=== PATIENT | male | born 1940 | race African-American/Black ===

== ENCOUNTER 2016-11-12 19:56 | Inpatient (IN) | payer OTHER, MEDICAID ==
[~2016-11-12] VITALS: Ht 193 cm; Wt 113.4 kg
[2016-11-12 23:36] LABS: BASOPHILS % 0.6 % (0.0-2.0); EOSINOPHILS % 1.3 % (0.0-5.0); HEMATOCRIT. 32.4 % (42.0-52.0); HEMOGLOBIN. 10.9 g/dL (14.0-18.0); LYMPHOCYTES % 17.9 % (20.0-50.0); MEAN CORPUSCULAR HEMOGLOBIN 29.2 pg (28.0-32.0); MEAN CORPUSCULAR VOLUME 87.2 fL (80.0-94.0); MEAN PLATELET VOLUME 9.7 fl (7.4-10.4); MONOCYTES % 12.9 % (2.0-8.0); NEUTROPHILS % 67.3 % (40.0-76.0); PLATELET 109 x1000/uL (130-400); RED BLOOD CELL COUNT 3.72 mill/uL (4.7-6.1); RED CELL DISTRIBUTION WIDTH 13.1 % (11.6-14.6)
[2016-11-13] VITALS (7 sets, daily range): BP systolic 137–196; BP diastolic 69–94
[2016-11-13 01:10] LABS: CLARITY URINE CLEAR (CLEAR); COLOR URINE YELLOW (YELLOW); GLUCOSE URINE NEGATIVE (NEGATIVE); KETONES URINE NEGATIVE (NEGATIVE); LEUKOCYTE ESTERASE URINE NEGATIVE (NEGATIVE); NITRITE URINE NEGATIVE (NEGATIVE); OCCULT BLOOD URINE 1+ (NEGATIVE); PH URINE 6.5 (4.5-8.0); PROTEIN URINE 2+ (NEGATIVE); SPECIFIC GRAVITY URINE 1.007 (1.005-1.030)
[2016-11-13] MEDS ORDERED: BENAZEPRIL 20MG TABLET PO ONE (03:45)
[2016-11-13] MEDS ORDERED: ONDANSETRON HCL 4MG/2ML VIAL IV PRN (09:00)
[2016-11-13] MEDS ORDERED: IPRATROPIUM/ALBUTEROL 0.5-3(2.5)MG/3ML NEB INH PRN (09:00)
[2016-11-13] MEDS ORDERED: ACETAMINOPHEN 650MG/20.3ML UDC GT PRN (09:00)
[2016-11-13] MEDS ORDERED: HYDROCODONE/ACETAMINOPHEN 5/325MG TABLET PO PRN (09:00)
[2016-11-13] MEDS ORDERED: ACETAMINOPHEN 325MG TABLET PO PRN (09:00)
[2016-11-13 09:18] LABS: *AMPHETAMINES SCREEN URINE NEGATIVE (NEGATIVE); *BARBITURATES SCREEN URINE NEGATIVE (NEGATIVE); *BENZODIAZEPINES SCREEN URINE NEGATIVE (NEGATIVE); *COCAINE SCREEN URINE NEGATIVE (NEGATIVE); CANNABINOID URINE SCREEN NEGATIVE (NEGATIVE); METHADONE URINE SCREEN NEGATIVE (NEGATIVE); OPIATES URINE SCREEN NEGATIVE (NEGATIVE); PHENCYCLIDINE URINE SCREEN NEGATIVE (NEGATIVE)
[2016-11-13] MEDS ORDERED: AMLODIPINE 10MG TABLET PO ONE (09:45)
[2016-11-13] MEDS ORDERED: ENOXAPARIN 30MG/0.3ML SYR SUBCUT SCH (12:00)
[2016-11-13] MEDS: SODIUM CHLORIDE 0.45% 1,000 ML IV SCH ×2 (12:53→22:05)
[2016-11-13] MEDS: SODIUM CHLORIDE 0.9% INJ 3ML FLUSH IVF SCH ×2 (16:40→22:04)
[2016-11-13] MEDS: FINASTERIDE 5MG TABLET PO SCH (16:41)
[2016-11-13] MEDS: TAMSULOSIN HCL 0.4MG SR CAPSULE PO SCH (16:41)
[2016-11-13] MEDS ORDERED: ENOXAPARIN 80MG/0.8ML SYR SUBCUT NR (17:00)
[2016-11-13 17:30] LABS: BASOPHILS % 0.5 % (0.0-2.0); EOSINOPHILS % 1.6 % (0.0-5.0); HEMATOCRIT. 29.6 % (42.0-52.0); HEMOGLOBIN. 9.9 g/dL (14.0-18.0); LYMPHOCYTES % 16.3 % (20.0-50.0); MEAN CORPUSCULAR HEMOGLOBIN 29.3 pg (28.0-32.0); MEAN CORPUSCULAR VOLUME 87.4 fL (80.0-94.0); MEAN PLATELET VOLUME 10.3 fl (7.4-10.4); MONOCYTES % 13.6 % (2.0-8.0); PLATELET 94 x1000/uL (130-400); RED BLOOD CELL COUNT 3.38 mill/uL (4.7-6.1)
[2016-11-13 17:46] LABS: CARBON DIOXIDE 28 mEq/L (21-32); CHLORIDE 115 mEq/L (98-107)
[2016-11-13 17:54] LABS: CREATINE KINASE MB FRACTION 1.7 ng/mL (0.5-3.6); T4 FREE 1.03 ng/dL (0.76-1.46)
[2016-11-13 18:12] LABS: TROPONIN I 0.65 ng/mL (0.00-0.04)
[2016-11-13 21:53] LABS: CREATININE URINE RANDOM 77.7 mg/dL
[2016-11-14 01:38] LABS: CREATINE KINASE MB FRACTION 1.2 ng/mL (0.5-3.6)
[2016-11-14 01:59] LABS: TROPONIN I 0.51 ng/mL (0.00-0.04)
[2016-11-14 04:00] VITALS: BP 125/63
[2016-11-14] MEDS: SODIUM CHLORIDE 0.9% INJ 3ML FLUSH IVF SCH ×3 (05:46→22:25)
[2016-11-14 05:53] LABS: BASOPHILS % 0.3 % (0.0-2.0); EOSINOPHILS % 1.6 % (0.0-5.0); HEMATOCRIT. 28.1 % (42.0-52.0); HEMOGLOBIN. 9.4 g/dL (14.0-18.0); LYMPHOCYTES % 23.6 % (20.0-50.0); MEAN CORPUSCULAR HEMOGLOBIN 29.2 pg (28.0-32.0); MEAN CORPUSCULAR VOLUME 87.1 fL (80.0-94.0); MEAN PLATELET VOLUME 10.8 fl (7.4-10.4); NEUTROPHILS % 61.5 % (40.0-76.0); PLATELET 106 x1000/uL (130-400); RED BLOOD CELL COUNT 3.23 mill/uL (4.7-6.1); RED CELL DISTRIBUTION WIDTH 13.2 % (11.6-14.6)
[2016-11-14 06:48] LABS: CARBON DIOXIDE 26 mEq/L (21-32); CHLORIDE 116 mEq/L (98-107); CREATINE KINASE 146 IU/L (39-308); CREATINE KINASE MB FRACTION 1.3 ng/mL (0.5-3.6); HDL CHOLESTEROL 57 mg/dL (40-59); LDL CHOLESTEROL 130 mg/dL (5-100); PREALBUMIN 8.3 mg/dL (20.0-40.0)
[2016-11-14 06:57] LABS: HEPATITIS B SURFACE ANTIGEN NEGATIVE
[2016-11-14 07:15] LABS: TROPONIN I 0.45 ng/mL (0.00-0.04)
[2016-11-14 08:00] VITALS: BP 136/78
[2016-11-14 08:03] LABS: FOLIC ACID (FOLATE) SERUM 6.9 ng/mL (>5.38)
[2016-11-14] MEDS: AMLODIPINE 10MG TABLET PO SCH (08:36)
[2016-11-14] MEDS: FINASTERIDE 5MG TABLET PO SCH (08:36)
[2016-11-14] MEDS: TAMSULOSIN HCL 0.4MG SR CAPSULE PO SCH (08:36)
[2016-11-14 16:00] VITALS: BP 144/87
[2016-11-14] MEDS: ENOXAPARIN 120MG/0.8ML SYR SUBCUT SCH (17:48)
[2016-11-14 20:02] VITALS: BP 122/59
[2016-11-15] VITALS (8 sets, daily range): BP systolic 134–153; BP diastolic 69–95
[2016-11-15] MEDS: SODIUM CHLORIDE 0.9% INJ 3ML FLUSH IVF SCH ×3 (05:47→20:54)
[2016-11-15 07:36] LABS: BASOPHILS % 0.6 % (0.0-2.0); EOSINOPHILS % 2.2 % (0.0-5.0); HEMATOCRIT. 28.8 % (42.0-52.0); HEMOGLOBIN. 9.5 g/dL (14.0-18.0); LYMPHOCYTES % 26.8 % (20.0-50.0); MEAN CORPUSCULAR HEMOGLOBIN 28.7 pg (28.0-32.0); MEAN CORPUSCULAR VOLUME 86.7 fL (80.0-94.0); MEAN PLATELET VOLUME 10.7 fl (7.4-10.4); MONOCYTES % 11.9 % (2.0-8.0); NEUTROPHILS % 58.5 % (40.0-76.0); PLATELET 115 x1000/uL (130-400); RED BLOOD CELL COUNT 3.32 mill/uL (4.7-6.1); RED CELL DISTRIBUTION WIDTH 12.7 % (11.6-14.6)
[2016-11-15] MEDS: FINASTERIDE 5MG TABLET PO SCH (10:22)
[2016-11-15] MEDS: AMLODIPINE 10MG TABLET PO SCH (10:22)
[2016-11-15] MEDS: TAMSULOSIN HCL 0.4MG SR CAPSULE PO SCH (10:22)
[2016-11-15] MEDS ORDERED: DIGOXIN 500MCG/2ML AMP IV NR (10:43)
[2016-11-15] MEDS: SODIUM CHLORIDE 0.45% 1,000 ML IV SCH ×2 (14:58→20:55)
[2016-11-15 15:19] LABS: BASOPHILS % 0.4 % (0.0-2.0); EOSINOPHILS % 1.6 % (0.0-5.0); HEMATOCRIT. 30.5 % (42.0-52.0); LYMPHOCYTES % 21.4 % (20.0-50.0); MEAN CORPUSCULAR HEMOGLOBIN 28.7 pg (28.0-32.0); MEAN CORPUSCULAR VOLUME 87.2 fL (80.0-94.0); MEAN PLATELET VOLUME 10.6 fl (7.4-10.4); MONOCYTES % 12.6 % (2.0-8.0)
[2016-11-15 15:53] LABS: PHOSPHORUS 3.6 mg/dL (2.5-4.9)
[2016-11-15 16:11] LABS: TROPONIN I 0.62 ng/mL (0.00-0.04)
[2016-11-15 16:25] LABS: PLATELET 128 x1000/uL (130-400)
[2016-11-15] MEDS: ENOXAPARIN 120MG/0.8ML SYR SUBCUT SCH (17:59)
[2016-11-16 04:00] VITALS: BP 157/82
[2016-11-16 06:19] LABS: BASOPHILS % 0.5 % (0.0-2.0); EOSINOPHILS % 1.2 % (0.0-5.0); HEMATOCRIT. 29.9 % (42.0-52.0); LYMPHOCYTES % 20.1 % (20.0-50.0); MEAN CORPUSCULAR HEMOGLOBIN 29.2 pg (28.0-32.0); MEAN CORPUSCULAR VOLUME 87.1 fL (80.0-94.0); MEAN PLATELET VOLUME 10.7 fl (7.4-10.4); MONOCYTES % 12.9 % (2.0-8.0); NEUTROPHILS % 65.3 % (40.0-76.0); PLATELET 132 x1000/uL (130-400); RED BLOOD CELL COUNT 3.44 mill/uL (4.7-6.1); RED CELL DISTRIBUTION WIDTH 12.9 % (11.6-14.6)
[2016-11-16] MEDS: SODIUM CHLORIDE 0.45% 1,000 ML IV SCH (06:35)
[2016-11-16] MEDS: SODIUM CHLORIDE 0.9% INJ 3ML FLUSH IVF SCH ×3 (06:36→21:14)
[2016-11-16 07:48] LABS: PHOSPHORUS 2.7 mg/dL (2.5-4.9)
[2016-11-16 08:00] VITALS: BP 174/75
[2016-11-16] MEDS: AMLODIPINE 10MG TABLET PO SCH (08:28)
[2016-11-16] MEDS: FINASTERIDE 5MG TABLET PO SCH (08:28)
[2016-11-16] MEDS: TAMSULOSIN HCL 0.4MG SR CAPSULE PO SCH (08:28)
[2016-11-16] MEDS: ENOXAPARIN 120MG/0.8ML SYR SUBCUT SCH ×2 (09:26→21:15)
[2016-11-16] MEDS: DEXTROSE 5% WATER 1,000 ML IV SCH ×2 (09:27→17:31)
[2016-11-16] MEDS: LABETALOL HCL 100MG TABLET PO SCH ×2 (09:27→21:14)
[2016-11-16 12:00] VITALS: BP 133/73
[2016-11-16 12:25] LABS: INR 1.4; PROTHROMBIN TIME 14.3 sec
[2016-11-16 15:09] LABS: ALBUMIN 2.4 g/dL (2.9-4.4); ALPHA-1-GLOBULIN 0.3 g/dL (0.0-0.4); ALPHA-2-GLOBULIN 0.7 g/dL (0.4-1.0); GAMMA GLOBULINS 0.6 g/dL (0.4-1.8); GLOBULIN TOTAL 2.5 g/dL (2.2-3.9); M-SPIKE Not Observed g/dL (Not Observed); TOTAL PROTEIN SERUM 4.9 g/dL (6.0-8.5)
[2016-11-16 16:00] VITALS: BP 159/92
[2016-11-16] MEDS ORDERED: WARFARIN SODIUM 7.5MG TABLET PO SCH (18:00)
[2016-11-16 20:00] VITALS: BP 158/90
[2016-11-17] VITALS: BP 127/72
[2016-11-17 04:00] VITALS: BP 151/74
[2016-11-17 05:16] LABS: IMMUNOGLOBULIN A 158 mg/dL (61-437); IMMUNOGLOBULIN G 1127 mg/dL (700-1600); IMMUNOGLOBULIN M 64 mg/dL (15-143)
[2016-11-17 05:31] LABS: INR 1.3; PROTHROMBIN TIME 13.3 sec
[2016-11-17] MEDS: DEXTROSE 5% WATER 1,000 ML IV SCH (05:58)
[2016-11-17] MEDS: SODIUM CHLORIDE 0.9% INJ 3ML FLUSH IVF SCH ×2 (05:58→13:31)
[2016-11-17 06:00] LABS: PHOSPHORUS 2.8 mg/dL (2.5-4.9)
[2016-11-17 06:48] LABS: BASOPHILS % 0.6 % (0.0-2.0); EOSINOPHILS % 2.2 % (0.0-5.0); HEMATOCRIT. 28.6 % (42.0-52.0); HEMOGLOBIN. 9.6 g/dL (14.0-18.0); LYMPHOCYTES % 30.7 % (20.0-50.0); MEAN CORPUSCULAR VOLUME 86.3 fL (80.0-94.0); MEAN PLATELET VOLUME 10.5 fl (7.4-10.4); MONOCYTES % 11.6 % (2.0-8.0); NEUTROPHILS % 54.9 % (40.0-76.0); PLATELET 150 x1000/uL (130-400); RED BLOOD CELL COUNT 3.31 mill/uL (4.7-6.1); RED CELL DISTRIBUTION WIDTH 12.8 % (11.6-14.6)
[2016-11-17 08:00] VITALS: BP 150/76
[2016-11-17] MEDS: TAMSULOSIN HCL 0.4MG SR CAPSULE PO SCH (08:19)
[2016-11-17] MEDS: FINASTERIDE 5MG TABLET PO SCH (08:19)
[2016-11-17] MEDS: LABETALOL HCL 100MG TABLET PO SCH (08:20)
[2016-11-17] MEDS: AMLODIPINE 10MG TABLET PO SCH (08:20)
[2016-11-17] MEDS: ENOXAPARIN 120MG/0.8ML SYR SUBCUT SCH (08:56)
[2016-11-17 09:07] LABS: ANTI-DNA DOUBLE STRANDED QUANT < 1 IU/mL (0-9); ANTI-NUCLEAR ANTIBODIES DIRECT Negative (Negative); GLOMERULAR BASEMENT MEMB AB 3 units (0-20)
[2016-11-17] MEDS ORDERED: POTASSIUM CHLORIDE 20MEQ TABLET SR PO SCH (11:15)
[2016-11-17 12:00] VITALS: BP 128/65
[2016-11-17 13:08] LABS: ANTI-MYELOPEROXIDASE AB < 9.0 U/mL (0.0-9.0); ANTI-PROTEINASE 3 ABS < 3.5 U/mL (0.0-3.5); COMPLEMENT C3 126 mg/dL (82-167)
[2016-11-17 14:19] LABS: ATYPICAL P-ANCA <1:20 titer (Neg:<1:20); CYTOPLASMIC C-ANCA <1:20 titer (Neg:<1:20); PERINUCLEAR P-ANCA <1:20 titer (Neg:<1:20)
[2016-11-17 16:00] VITALS: BP 135/70
[2016-11-17 16:02] VITALS: BP 135/70
[2016-11-17] MEDS ORDERED: WARFARIN SODIUM 7.5MG TABLET PO NR (18:00)
[2016-11-17] MEDS ORDERED: LABETALOL HCL 100MG TABLET PO SCH (21:00)
== END 2016-11-17 16:25 | DRG 682 ==
LOC: ER 23:36 → 7WST 11-13 03:45
PROVIDERS: ADMIT Internal Medicine; ATTEND Internal Medicine
PROC: 0T9B70Z Drainage of Bladder with Drainage Device, Via Natural or Artificial Opening (ICD-10-PCS; principal; 2016-11-15)
DX: N17.1 Acute kidney failure with acute cortical necrosis (principal); E43 Unspecified severe protein-calorie malnutrition; I82.412 Acute embolism and thrombosis of left femoral vein; N13.8 Other obstructive and reflux uropathy; E87.0 Hyperosmolality and hypernatremia; I82.432 Acute embolism and thrombosis of left popliteal vein; N13.30 Unspecified hydronephrosis; N40.1 Benign prostatic hyperplasia with lower urinary tract symptoms; D63.8 Anemia in other chronic diseases classified elsewhere; E78.5 Hyperlipidemia, unspecified; K80.20 Calculus of gallbladder without cholecystitis without obstruction; F17.210 Nicotine dependence, cigarettes, uncomplicated; I12.9 Hypertensive chronic kidney disease with stage 1 through stage 4 chronic kidney disease, or unspecified chronic kidney disease; R31.9 Hematuria, unspecified; N32.3 Diverticulum of bladder; N18.9 Chronic kidney disease, unspecified; M54.5 Low back pain; Z59.0 Homelessness; Z88.0 Allergy status to penicillin; N32.0 Bladder-neck obstruction; Z68.30 Body mass index [BMI] 30.0-30.9, adult
CPT/HCPCS: 36415; 71010; 76770; 78582; 80048; 80053; 80061; 80076; 80305; 81001; 82043; 82270; 82550; 82553; 82570; 82607; 82728; 82746; 82784; 83036; 83520; 83735; 83880; 84100; 84134; 84153; 84155; 84156; 84165; 84300; 84439; 84443; 84484; 85025; 85044; 85379; 85610; 86038; 86160; 86225; 86256; 86334; 86803; 87086; 87186; 87340; 93005; 93306; 93970; 97162; 99285; A9558; J1160; J1650; J7070; A4315

== ENCOUNTER 2017-02-13 15:34 | Emergency (ER) | payer OTHER, MEDICAID ==
[~2017-02-13] VITALS: Ht 193 cm; Wt 100.0 kg
[2017-02-13] MEDS ORDERED: RIVA20TA PO (15:44)
[2017-02-13] MEDS ORDERED: SODIUM CHLORIDE 0.9% 1,000 ML IV ONE (16:46)
[2017-02-13 17:09] LABS: EOSINOPHILS % 2.2 % (0.0-5.0); HEMATOCRIT. 27.1 % (42.0-52.0); HEMOGLOBIN. 8.9 g/dL (14.0-18.0); LYMPHOCYTES % 21.1 % (20.0-50.0); MEAN CORPUSCULAR VOLUME 88.9 fL (80.0-94.0); MEAN PLATELET VOLUME 8.1 fl (7.4-10.4); MONOCYTES % 12.5 % (2.0-8.0); NEUTROPHILS % 63.2 % (40.0-76.0); PLATELET 246 x1000/uL (130-400); RED BLOOD CELL COUNT 3.05 mill/uL (4.7-6.1); RED CELL DISTRIBUTION WIDTH 14.8 % (11.6-14.6)
[2017-02-13 17:12] LABS: INR 1.1; PARTIAL THROMBOPLASTIN TIME 31.4 sec (23.4-31.0); PROTHROMBIN TIME 11.4 sec (9.4-11.6)
[2017-02-13 17:41] LABS: CHLORIDE 112 mEq/L (98-107)
[2017-02-13 17:46] LABS: CARBON DIOXIDE 27 mEq/L (21-32)
[2017-02-13 18:02] LABS: CLARITY URINE CLEAR (CLEAR); COLOR URINE ORANGE (YELLOW); GLUCOSE URINE NEGATIVE (NEGATIVE); KETONES URINE NEGATIVE (NEGATIVE); LEUKOCYTE ESTERASE URINE 1+ (NEGATIVE); NITRITE URINE NEGATIVE (NEGATIVE); OCCULT BLOOD URINE 3+ (NEGATIVE); PROTEIN URINE 4+ (NEGATIVE); SPECIFIC GRAVITY URINE 1.019 (1.005-1.030)
[2017-02-13] MEDS ORDERED: CLONIDINE 0.2MG TABLET PO ONE (19:00)
[2017-02-13] MEDS ORDERED: LEVOFLOXACIN 750MG PREMIX 150 ML IV ONE (19:15)
[2017-02-13 21:53] VITALS: BP 156/79
== END 2017-02-13 23:35 | disposition home or self-care (01) ==
LOC: ER 15:34
DX: R31.9 Hematuria, unspecified (principal); N39.0 Urinary tract infection, site not specified; I10 Essential (primary) hypertension; Z88.0 Allergy status to penicillin; Z86.718 Personal history of other venous thrombosis and embolism
CPT/HCPCS: 36415; 51702; 80048; 81001; 85025; 85610; 85730; 96361; 96365; 96366; 99285; J1956; J7030; A4315

== ENCOUNTER 2017-02-18 18:36 | Inpatient (IN) | payer MEDICARE, MEDICAID ==
[~2017-02-18] VITALS: Ht 193 cm; Wt 101.6 kg
[~2017-02-18 18:36] MED LIST: RIVA20TA PO
[2017-02-18 19:52] LABS: HEMATOCRIT. 25.5 % (42.0-52.0); HEMOGLOBIN. 8.6 g/dL (14.0-18.0); MEAN CORPUSCULAR HEMOGLOBIN 29.4 pg (28.0-32.0); MEAN CORPUSCULAR VOLUME 86.9 fL (80.0-94.0); MEAN PLATELET VOLUME 8.4 fl (7.4-10.4); PLATELET 273 x1000/uL (130-400); RED BLOOD CELL COUNT 2.93 mill/uL (4.7-6.1); RED CELL DISTRIBUTION WIDTH 14.3 % (11.6-14.6)
[2017-02-18 19:59] LABS: INR 1.1; PROTHROMBIN TIME 11.4 sec (9.4-11.6)
[2017-02-18 20:06] LABS: CARBON DIOXIDE 25 mEq/L (21-32); CHLORIDE 113 mEq/L (98-107)
[2017-02-18 20:43] LABS: PLATELET ESTIMATE NORMAL
[2017-02-18 21:03] LABS: CLARITY URINE CLOUDY (CLEAR); COLOR URINE BLOODY (YELLOW); GLUCOSE URINE TRACE (NEGATIVE); KETONES URINE 2+ (NEGATIVE); LEUKOCYTE ESTERASE URINE 3+ (NEGATIVE); NITRITE URINE POSITIVE (NEGATIVE); OCCULT BLOOD URINE 3+ (NEGATIVE); PROTEIN URINE 4+ (NEGATIVE); SPECIFIC GRAVITY URINE 1.018 (1.005-1.030)
[2017-02-18] MEDS ORDERED: LEVOFLOXACIN 750MG PREMIX 150 ML IV ONE (21:30)
[2017-02-18] MEDS ORDERED: KETOROLAC 30MG/ML VIAL IV ONE (22:15)
[2017-02-19] VITALS (7 sets, daily range): BP systolic 146–169; BP diastolic 62–82
[2017-02-19] MEDS ORDERED: TAMS0.4C31 PO (01:10)
[2017-02-19] MEDS ORDERED: LEVO750T46 PO (01:10)
[2017-02-19] MEDS ORDERED: LABE100T PO (01:10)
[2017-02-19] MEDS ORDERED: FURO40TA5 PO (01:10)
[2017-02-19] MEDS ORDERED: HYDR-4134 PO (01:10)
[2017-02-19] MEDS ORDERED: AMLO10TA80 PO (01:10)
[2017-02-19] MEDS ORDERED: ATOR40TA70 PO (01:10)
[2017-02-19] MEDS: ACETAMINOPHEN 325MG TABLET PO PRN ×2 (05:54→10:13)
[2017-02-19 07:07] LABS: HEMATOCRIT. 22.7 % (42.0-52.0); HEMOGLOBIN. 7.7 g/dL (14.0-18.0); MEAN CORPUSCULAR HEMOGLOBIN 29.2 pg (28.0-32.0); MEAN CORPUSCULAR VOLUME 86.6 fL (80.0-94.0); MEAN PLATELET VOLUME 8.5 fl (7.4-10.4); PLATELET 252 x1000/uL (130-400); RED BLOOD CELL COUNT 2.62 mill/uL (4.7-6.1); RED CELL DISTRIBUTION WIDTH 13.9 % (11.6-14.6)
[2017-02-19 07:44] LABS: CHLORIDE 113 mEq/L (98-107)
[2017-02-19 08:01] LABS: CARBON DIOXIDE 24 mEq/L (21-32)
[2017-02-19] MEDS: LABETALOL HCL 100MG TABLET PO SCH (18:29)
[2017-02-19] MEDS: AMLODIPINE 10MG TABLET PO SCH (18:29)
[2017-02-19] MEDS: RIVAROXABAN 20 MG TABLET PO SCH (18:29)
[2017-02-19] MEDS: LEVOFLOXACIN 500MG PREMIX 100 ML IV SCH (21:52)
[2017-02-19 22:28] LABS: PLATELET ESTIMATE NORMAL
[2017-02-20] VITALS: BP 142/68
[2017-02-20 04:00] VITALS: BP 141/58
[2017-02-20 07:54] VITALS: BP 143/53
[2017-02-20] MEDS: FUROSEMIDE 40MG TABLET PO SCH (08:22)
[2017-02-20] MEDS: AMLODIPINE 10MG TABLET PO SCH (08:22)
[2017-02-20] MEDS: LABETALOL HCL 100MG TABLET PO SCH ×2 (08:22→21:09)
[2017-02-20] MEDS: HYDRALAZINE HCL 25MG TABLET PO SCH (08:22)
[2017-02-20] MEDS: TAMSULOSIN HCL 0.4MG SR CAPSULE PO SCH (08:22)
[2017-02-20 12:00] VITALS: BP 145/69
[2017-02-20] MEDS: DOCUSATE SODIUM 100MG CAPSULE PO SCH ×2 (12:40→16:19)
[2017-02-20 16:13] VITALS: BP 127/66
[2017-02-20] MEDS: RIVAROXABAN 20 MG TABLET PO SCH (16:19)
[2017-02-20 20:00] VITALS: BP 145/58
[2017-02-20] MEDS ORDERED: ATORVASTATIN CALCIUM 40MG TABLET PO SCH (21:00)
[2017-02-20] MEDS: LEVOFLOXACIN 500MG PREMIX 100 ML IV SCH (21:09)
[2017-02-21] VITALS: BP 158/74
[2017-02-21 04:00] VITALS: BP 133/72
[2017-02-21 08:00] VITALS: BP 160/77
[2017-02-21] MEDS: LABETALOL HCL 100MG TABLET PO SCH (09:36)
[2017-02-21] MEDS: TAMSULOSIN HCL 0.4MG SR CAPSULE PO SCH (09:36)
[2017-02-21] MEDS: DOCUSATE SODIUM 100MG CAPSULE PO SCH (09:36)
[2017-02-21] MEDS: FUROSEMIDE 40MG TABLET PO SCH (09:36)
[2017-02-21] MEDS: AMLODIPINE 10MG TABLET PO SCH (09:36)
[2017-02-21] MEDS: HYDRALAZINE HCL 25MG TABLET PO SCH (09:36)
[2017-02-21 11:14] VITALS: BP 160/77
== END 2017-02-21 11:30 | disposition home or self-care (01) | DRG 689 ==
LOC: ER 18:36 → 8WST 22:20 → ENRESERV 22:49
PROVIDERS: ADMIT Family Medicine; ATTEND Family Medicine
DX: N39.0 Urinary tract infection, site not specified (principal); E43 Unspecified severe protein-calorie malnutrition; I11.0 Hypertensive heart disease with heart failure; I50.9 Heart failure, unspecified; R31.9 Hematuria, unspecified; R33.8 Other retention of urine; N40.1 Benign prostatic hyperplasia with lower urinary tract symptoms; F17.210 Nicotine dependence, cigarettes, uncomplicated; Z88.0 Allergy status to penicillin; Z86.718 Personal history of other venous thrombosis and embolism; Z79.899 Other long term (current) drug therapy; Z79.2 Long term (current) use of antibiotics
CPT/HCPCS: 36415; 71010; 76770; 80053; 81001; 85025; 85610; 87086; 93306; 93970; 96374; 99285; J1885; J1956; J7040; A4315

== ENCOUNTER 2017-04-14 04:17 | Emergency (ER) | payer OTHER, MEDICAID ==
[~2017-04-14] VITALS: Ht 193 cm; Wt 104.0 kg
[~2017-04-14 04:17] MED LIST changes: +AMLO10TA80 PO; +ATOR40TA70 PO; +FURO40TA5 PO; +HYDR-4134 PO; +LABE100T PO; +LEVO750T46 PO; +TAMS0.4C31 PO
[2017-04-14 05:02] VITALS: BP 171/87
== END 2017-04-14 07:19 | disposition home or self-care (01) ==
LOC: ER 06:28
DX: R33.9 Retention of urine, unspecified (principal); F17.200 Nicotine dependence, unspecified, uncomplicated; Z86.718 Personal history of other venous thrombosis and embolism; Z88.0 Allergy status to penicillin
CPT/HCPCS: 51702; 99284; A4315

== ENCOUNTER 2017-04-25 09:17 | Emergency (ER) | payer OTHER, MEDICAID ==
[~2017-04-25] VITALS: Ht 193 cm; Wt 106.0 kg
[2017-04-25 10:10] LABS: BASOPHILS % 0.9 % (0.0-2.0); EOSINOPHILS % 3.9 % (0.0-5.0); HEMATOCRIT. 29.6 % (42.0-52.0); LYMPHOCYTES % 35.4 % (20.0-50.0); MEAN CORPUSCULAR HEMOGLOBIN 29.2 pg (28.0-32.0); MEAN CORPUSCULAR VOLUME 86.7 fL (80.0-94.0); MEAN PLATELET VOLUME 9.2 fl (7.4-10.4); MONOCYTES % 13.4 % (2.0-8.0); NEUTROPHILS % 46.4 % (40.0-76.0); PLATELET 197 x1000/uL (130-400); RED BLOOD CELL COUNT 3.41 mill/uL (4.7-6.1); RED CELL DISTRIBUTION WIDTH 13.7 % (11.6-14.6)
[2017-04-25 10:18] LABS: INR 1.2
[2017-04-25 10:25] LABS: CARBON DIOXIDE 26 mEq/L (21-32); CHLORIDE 111 mEq/L (98-107)
[2017-04-25 11:28] LABS: CLARITY URINE CLOUDY (CLEAR); COLOR URINE YELLOW (YELLOW); GLUCOSE URINE NEGATIVE (NEGATIVE); KETONES URINE NEGATIVE (NEGATIVE); LEUKOCYTE ESTERASE URINE 2+ (NEGATIVE); NITRITE URINE POSITIVE (NEGATIVE); OCCULT BLOOD URINE 3+ (NEGATIVE); PROTEIN URINE 4+ (NEGATIVE); SPECIFIC GRAVITY URINE 1.024 (1.005-1.030)
[2017-04-25 12:56] VITALS: BP 210/106
== END 2017-04-25 12:58 | disposition home or self-care (01) ==
LOC: ER 09:17
DX: Z46.6 Encounter for fitting and adjustment of urinary device (principal); N39.0 Urinary tract infection, site not specified; N40.0 Benign prostatic hyperplasia without lower urinary tract symptoms; I10 Essential (primary) hypertension; F17.210 Nicotine dependence, cigarettes, uncomplicated; Z86.718 Personal history of other venous thrombosis and embolism; Z88.0 Allergy status to penicillin; Z79.01 Long term (current) use of anticoagulants
CPT/HCPCS: 36415; 51702; 80053; 81001; 85025; 85610; 87077; 87086; 87186; 99284; A4315

== ENCOUNTER 2017-05-12 14:14 | Emergency (ER) | payer MEDICARE, MEDICAID ==
[~2017-05-12] VITALS: Ht 193 cm; Wt 106.0 kg
[2017-05-12 15:37] VITALS: BP 179/83
[2017-05-12 18:19] LABS: CLARITY URINE TURBID (CLEAR); COLOR URINE YELLOW (YELLOW); GLUCOSE URINE NEGATIVE (NEGATIVE); KETONES URINE NEGATIVE (NEGATIVE); LEUKOCYTE ESTERASE URINE 3+ (NEGATIVE); NITRITE URINE NEGATIVE (NEGATIVE); OCCULT BLOOD URINE 3+ (NEGATIVE); PH URINE 6.5 (4.5-8.0); PROTEIN URINE 4+ (NEGATIVE); SPECIFIC GRAVITY URINE 1.024 (1.005-1.030); UROBILINOGEN URINE 0.2 E.U./dL (0.2-1.0)
[2017-05-12] MEDS ORDERED: ACETAMINOPHEN 325MG TABLET PO ONE (18:45)
== END 2017-05-12 20:22 | disposition home or self-care (01) ==
LOC: ER 15:36
DX: Z46.6 Encounter for fitting and adjustment of urinary device (principal); N39.0 Urinary tract infection, site not specified; I10 Essential (primary) hypertension; N40.0 Benign prostatic hyperplasia without lower urinary tract symptoms; F17.200 Nicotine dependence, unspecified, uncomplicated; Z88.0 Allergy status to penicillin; Z86.718 Personal history of other venous thrombosis and embolism
CPT/HCPCS: 51702; 81001; 87077; 87086; 87186; 99284